=== PATIENT | male | born 1975 | race Caucasian/White ===

== ENCOUNTER 2019-09-07 02:46 | Emergency (ER) | payer SELFPAY ==
[~2019-09-07] VITALS: Ht 175.3 cm; Wt 72.7 kg
[2019-09-07 03:13] LABS: BASO # 0.1 10^3/uL (0.0-0.2); BASO % 0.6 % (0.0-1.0); EOS # 0.6 10^3/uL (0.0-0.5); EOS % 6.3 % (0.0-3.0); HEMATOCRIT 45.4 % (42.0-52.0); HEMOGLOBIN 15.2 g/dl (13.5-17.5); LYMPH # 2.9 10^3/uL (1.5-5.0); LYMPH % 31.8 % (24.0-44.0); MEAN CORPUSCULAR HEMOGLOBIN 31.5 pg (27.0-33.0); MEAN CORPUSCULAR HGB CONC 33.5 g/dl (32.0-36.5); MONO # 0.9 10^3/uL (0.0-0.8); MONO % 9.5 % (0.0-5.0); NEUTROPHILS # 4.8 10^3/uL (1.5-8.5); NEUTROPHILS % 51.6 % (36.0-66.0); PLATELET COUNT, AUTOMATED 289 10^3/uL (150-450); RED BLOOD COUNT 4.83 10^6/uL (4.30-6.10); WHITE BLOOD COUNT 9.2 10^3/uL (4.0-10.0)
[2019-09-07] MEDS ORDERED: NS 1,000 ML IV ONE ×2 (03:15→04:00)
[2019-09-07 03:26] LABS: CARBOXYHEMOGLOBIN 1.6 % (0.0-1.5); VENOUS BASE EXCESS -0.7 (-2.0-2.0); VENOUS HCO3 20.9 MEQ/L (23.0-27.0); VENOUS O2 SATURATION 95.5 % (60.0-80.0); VENOUS PARTIAL PRESSURE CO2 27.4 mmHg (38.0-50.0); VENOUS PARTIAL PRESSURE O2 72.3 mmHg (30.0-50.0); VENOUS STANDARD HCO3 23.9 MEQ/L; VENOUS TOTAL CO2 21.7 MEQ/L (24.0-28.0)
[2019-09-07 03:37] LABS: BLOOD UREA NITROGEN 14 MG/DL (7-18); CALCIUM LEVEL 9.1 MG/DL (8.5-10.1); CARBON DIOXIDE LEVEL 22 MEQ/L (21-32); CHLORIDE LEVEL 110 MEQ/L (98-107); CK-MB VALUE MASS 1.1 NG/ML (<3.6); CPK CREATINE PHOSPHOKINASE 183 U/L (39-308); CREATININE FOR GFR 0.83 MG/DL (0.70-1.30); ETHYL ALCOHOL (ETHANOL) 0.103 % (0.000-0.010); FREE THYROXINE INDEX 3.2 % (1.4-3.8); GLOMERULAR FILTRATION RATE > 60.0 (>60); GLUCOSE, FASTING 108 MG/DL (70-100); POTASSIUM SERUM 3.7 MEQ/L (3.5-5.1); SODIUM LEVEL 143 MEQ/L (136-145); T UPTAKE 38 % (33-40); THYROID STIMULATING HORMONE 0.624 uIU/ML (0.358-3.740); THYROXINE (T4) 8.3 UG/DL (4.5-12.0); TROPONIN I < 0.02 NG/ML (< 0.10)
[2019-09-07 04:46] VITALS: BP 115/72
--- NOTE | 2019-09-07 05:40 | REP ---
Clinical: Dyspnea. Comparison: 02/18/2006. Findings: Mediastinum and cardiac silhouette are normal. Coarsened interstitial markings cannot be excluded and may reflect chronic reactive airway disease or bronchitis. No focal consolidation. No effusion. No pneumothorax. Skeletal structures intact. Impression: Cannot exclude chronic reactive airway disease/bronchitis. No focal consolidation or effusion. Electronically Signed by German Diaz MD 09/07/2019 05:31 A
--- NOTE | 2019-09-08 07:32 | ECGEPIP ---
[facility] - ED Test Date: 2019-09-07 Pat Name: CARA THAO Department: Room: - Gender: Male We[employer]: : 1975 Requested By: NELSON ONEIL Order Number: [id number] Reading MD: Pritesh Ochoa Measurements Intervals [place] Rate: 140 P: 70 [place]: 141 QRS: 70 QRSD: 96 T: 51 QT: 328 QTc: 502 Interpretive Statements Superventricular tachycardia NONSPECIFIC ST & T-WAVE ABNORMALITY Prolonged QTc interval Comparison tracing not on file Electronically Signed on 09-08-2019 7:31:57 EST by Pritesh Ochoa
== END 2019-09-07 05:06 | disposition home or self-care (01) ==
LOC: M ED 02:46
DX: F10.229 Alcohol dependence with intoxication, unspecified (principal); Y90.0 Blood alcohol level of less than 20 mg/100 ml; E86.0 Dehydration; Z91.018 Allergy to other foods; F17.210 Nicotine dependence, cigarettes, uncomplicated
CPT/HCPCS: 71045; 80048; 82375; 82550; 82553; 82803; 83605; 84436; 84443; 84479; 84484; 85025; 93005; 96360; 99284; G0480

== ENCOUNTER → 2020-09-01 | Outpatient (CLI) | payer SELFPAY | LOC: M LABSMTC 10:05 | PROVIDERS: ATTEND Pediatrics | DX: Z20.828 Contact with and (suspected) exposure to other viral communicable diseases (principal) ==

== ENCOUNTER → 2021-09-16 | Outpatient (CLI) | payer OTHER ==
--- NOTE | 2021-09-17 05:00 | REP ---
INDICATION: PAIN COMPARISON: None. TECHNIQUE: AP, lateral, bilateral oblique views of the left elbow. FINDINGS: No acute fracture or dislocation is appreciated. Joint spaces and surrounding soft tissues appear normal. Lateral view demonstrates normal positioning to the anterior and posterior fat pads without evidence for effusion/hemarthrosis. No subcutaneous emphysema or foreign body identified. IMPRESSION: Normal age-appropriate left elbow radiographs. <Electronically signed by German Diaz > 09/17/21 [id number]
== END ==
LOC: M WUC 13:17
PROVIDERS: ATTEND Physician Assistant Medical
DX: M25.522 Pain in left elbow (principal)

== ENCOUNTER → 2022-04-18 | Outpatient (REF) | payer OTHER | LOC: M LAB REF 16:10 | PROVIDERS: ATTEND Physician Assistant Medical | DX: K14.6 Glossodynia (principal) ==

== ENCOUNTER → 2025-02-18 | Outpatient (CLI) | payer OTHER | LOC: M WUC 14:42 | PROVIDERS: ATTEND Physician Assistant Medical | DX: M19.012 Primary osteoarthritis, left shoulder (principal) ==